=== PATIENT | male | born 1965 | race Caucasian/White ===

== ENCOUNTER → 2017-03-03 | Outpatient (CLI) | payer OTHER ==
[~2017-03-03] MED LIST: IBUP-1105 PO; KETO10TA PO; OXYC-57 PO
--- NOTE | 2017-03-03 13:45 | DIAGNOSTIC IMAGING REPORT ---
TWO VIEW CHEST CLINICAL HISTORY: Preoperative examination. FINDINGS: PA and lateral chest radiographs are obtained. No prior studies are available for comparison at the time of dictation. The cardiomediastinal silhouette is unremarkable. The lungs and pleural spaces are clear. There is no pneumothorax. The bony thorax appears intact. IMPRESSION: No active disease in the chest. Electronically signed by: Dionte Mirza M.D. 03/03/2017 1:44 PM Dictated Date/Time: 03/03/2017 1:43 PM
[2017-03-03 14:47] LABS: BASO % 0.9 %; BASO ABS # 0.07 K/uL (0-0.2); COMPLETE YES; EOS % 4.4 %; HEMATOCRIT 44.4 % (42-52); IG% 0.7 %; LYMPH % 29.4 %; LYMPH ABS # 2.19 K/uL (1.2-3.4); MEAN CELL VOLUME 93.1 fL (80-100); MEAN CORPUSCULAR HEMOGLOBIN 31.4 pg (25-34); MEAN CORPUSCULAR HGB CONC 33.8 g/dl (32-36); MEAN PLATELET VOLUME 10.6 fL (7.4-10.4); MONO % 11.7 %; NEUT % 52.9 %; PLATELET COUNT 239 K/uL (130-400); RED BLOOD COUNT 4.77 M/uL (4.7-6.1); WHITE BLOOD COUNT 7.46 K/uL (4.8-10.8)
[2017-03-03 14:59] LABS: BLOOD UREA NITROGEN 12 mg/dl (7-18); BUN/CREATININE RATIO 12.9 (10-20); CALCIUM 8.9 mg/dl (8.5-10.1); CARBON DIOXIDE 29 mmol/L (21-32); CHLORIDE 105 mmol/L (98-107); CREATININE 0.97 mg/dl (0.60-1.40); GLUCOSE 76 mg/dl (70-99); POTASSIUM 4.1 mmol/L (3.5-5.1); SODIUM 140 mmol/L (136-145)
== END | disposition home or self-care (01) ==
LOC: C.CPL 13:06
PROVIDERS: ATTEND Orthopaedic Surgery
DX: Z01.812 Encounter for preprocedural laboratory examination (principal); Z01.810 Encounter for preprocedural cardiovascular examination; M75.121 Complete rotator cuff tear or rupture of right shoulder, not specified as traumatic

== ENCOUNTER → 2017-03-18 | Day surgery (SDC) | payer OTHER ==
[2017-03-04 11:35] VITALS: Ht 185.4 cm; Wt 129.6 kg
[~2017-03-18] VITALS: Ht 185.4 cm; Wt 129.6 kg
[~2017-03-18] MED LIST changes: +ATROPINE SULFATE 0.1 MG/ML 5ML SYR IV PRN; +BUPIVACAINE/EPINEPHRINE 0.25% 1:200,000 30 ML VIAL ONE; +CEFAZOLIN 3000 MG/65 ML D5W IV SCH; +DEXAMETHASONE SOD INJ 4 MG/ML VIAL ONE; +EpHEDrine SULFATE INJ 50 MG/ML AMP IV PRN; +EpHEDrine SULFATE INJ 50 MG/ML AMP ONE; +EpINEphrine INJ 1MG/ML AMP 1 MG/ML AMP ONE; +FENTANYL CITRATE INJ 50 MCG/1 ML 2 ML VIAL IV PRN; +FENTANYL CITRATE INJ 50 MCG/1 ML 2 ML VIAL ONE; +GLYCOPYRROLATE INJ 0.2 MG/ML VIAL ONE; +LACTATED RINGER'S 1000ML 1,000 ML IV SCH; +LIDOCAINE HCL 2% 2 ML VIAL (20MG/ML) ONE; +MIDAZOLAM HCL 1 MG/ML 2ML VIAL ONE; +NEOSTIGMINE METHYLSULFATE 5 MG/5 ML SYR ONE; +ONDANSETRON INJ 2 MG/ML 2 ML VIAL IV PRN; +ONDANSETRON INJ 2 MG/ML 2 ML VIAL ONE; +OXYCODONE/ACETAMINOPHEN 5-325 TAB PO PRN; +PHENYLEPHRINE HCL INJ 10 MG/ML VIAL ONE; +PROMETHAZINE HCL INJ 6.25 MG in SODIUM CHLORIDE 0.9% 50ML 50 ML IV PRN; +PROPOFOL IV EMULSION 10 MG/ML 20 ML VIAL IV ONE; +ROCURONIUM BROMIDE 10 MG/ML 5 ML VIAL ONE; +SODIUM CHLORIDE 0.9% 1000ML 1,000 ML IV SCH; +SUCCINYLCHOLINE CHLORIDE 20 MG/ML 10 ML VIAL IV ONE
--- NOTE | 2017-03-18 07:00 | History & Physical Bridge - SC ---
H&P Re-Evaluation Bridge Note: I have examined the patient, reviewed the History & Physical and in the interval since the performance of the History & Physical I have noted the following changes of clinical significance: No changes noted
--- NOTE | 2017-03-18 10:03 | [facility] Post Operative Brief Note ---
Immediate Operative Summary Operative Date Mar 18, 2017. Pre-Operative Diagnosis Large rotator cuff tear right shoulder Post-Operative Diagnosis Same as preop Procedure(s) Performed Right Shoulder Arthroscopic Large Rotator Cuff Repair, Large Open Rotator Cuff Repair Surgeon Dr. Toro Precise Winder Surgeon(s) Tang Mckeon PA-C Estimated Blood Loss 150 mL Findings as above Specimens None Complication(s) None Disposition Recovery Room / PACU
--- NOTE | 2017-03-18 10:14 | Discharge Instructions-SurgCtr ---
Discharge Instructions Date of Service Mar 18, 2017. Visit Reason for Visit: Right Shoulder Full Thickness Rotator Cuff Tear Discharge Discharge Diagnosis / Problem: SAME ABOVE Discharge Goals Goal(s): Decrease discomfort, Improve function Medications Stopped Medications Name(s): STOPPED IBUPROFEN 4-5 DAYS AGO PER PAT NURSE Restart Stopped Medication(s): MAY RESTART WHEN YOU ARE FINISHED WITH TORADOL. TAKE TORADOL EVERY 8 HOURS WITH FOOD UNTIL FINISHED Activity Recommendations Activity Limitations: as noted below Lifting Limitations: until after follow-up appointment Exercise/Sports Limitations: until after follow-up appointment Driving or Machine Use: AFTER FOLLOW-UP Anesthesia . Post Anesthesia Instructions: If you have had General Anesthesia or IV Sedation: * Do not drive today. * Resume driving when surgeon permits. * Do not make important decisions or sign legal documents today. * Call surgeon for: 1. Temperature elevations greater than 101 degrees F. 2. Uncontrollable pain. 3. Excessive bleeding. 4. Persistent nausea and vomiting. 5. Medication intolerance (nausea, vomiting or rash). * For nausea and vomiting use only clear liquids such as: tea, soda, bouillon until nausea subsides, then gradually increase diet as tolerated. * If you have any concerns or questions, call your surgeon's office. If physician is unavailable and it is an emergency, call 911 or go to the nearest emergency room. . Instructions / Follow-Up Instructions / Follow-Up MEDICATIONS: * Resume previous medications unless instructed otherwise by your surgeon. * Always take pain medication on a full stomach or with food to avoid upset stomach. * Do not drink alcohol or drive while taking narcotics. * Ibuprofen or Tylenol may be taken if narcotic not needed. SPECIAL CARE INSTRUCTIONS: __ None _X_ Keep extremity elevated and iced x 48 hours; apply ice 20-30 minutes 8-10 times/day. May remove at night. __ Sling __24 hrs/day __ Remove at night _X_ Shoulder Immobilizer (MAY REMOVE AFTER 48 HOURS ONLY TO SHOWER AND FOR THERAPY) _X_ 24 hrs/day __ Remove at night _X_ Dressing __ Maintain until seen in office, may shower with plastic over site _X_ Remove dressings in 24-48 hours and then may shower _X_ Cover incisions with band-aids after showering __ Do not remove PRINEO (THE PURPLE TINTED DRESSING APPLIED DIRECTLY TO THE SKIN) Call physician if chills or temperature rises above 102 degrees or pain unrelieved by prescribed pain medications at . . Diet Recommendations Home Diet: no limitations Fluid Restriction: None Procedures Procedures Performed: Right Shoulder Arthroscopic Large Rotator Cuff Repair, Large Open Rotator Cuff Repair Pending Studies Studies pending at discharge: no Work Instructions Return To Work: after follow-up Lifting Limitations: NO LIFTING WITH RIGHT ARM Medical Emergencies . Who to Call and When: Medical Emergencies: If at any time you feel your situation is an emergency, please call 911 immediately. . Non-Emergent Contact Non-Emergency issues call your: Primary Care Provider Call Non-Emergent contact if: you have a fever, temperature is above 101.5 . . "Provider Documentation" section prepared by Tang Mckeon. .
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
[2017-03-18 11:17] VITALS: TEMP 36.5
--- NOTE | 2017-03-18 11:37 | Anesthesia Progress Nt - [facility] ---
Anesthesia Post Op Note Date & Time Mar 18, 2017 at 11:37 Vital Signs Pain Intensity: 0 Vital Signs Past 12 Hours Date Time Temp Pulse Resp B/P (MAP) Pulse Ox O2 Delivery O2 Flow Rate FiO2 03/18/17 11:17 36.5 82 20 147/82 (103) 95 Room Air 03/18/17 10:54 83 18 03/18/17 10:54 82 18 94 03/18/17 10:49 84 23 03/18/17 10:49 84 23 88 03/18/17 10:47 112/79 03/18/17 10:44 81 16 03/18/17 10:44 80 16 92 03/18/17 10:42 131/78 03/18/17 10:42 36.4 81 16 131/78 94 Room Air 03/18/17 10:39 80 17 99 03/18/17 10:39 79 17 03/18/17 10:38 79 17 97 03/18/17 10:38 79 17 03/18/17 10:37 119/85 03/18/17 10:33 85 14 03/18/17 10:33 85 14 92 03/18/17 10:32 131/86 03/18/17 10:28 84 14 96 03/18/17 10:28 84 14 03/18/17 10:27 129/80 03/18/17 10:23 86 19 03/18/17 10:23 85 19 97 03/18/17 10:22 119/79 03/18/17 10:20 85 16 98 03/18/17 10:20 85 16 03/18/17 10:17 125/83 03/18/17 10:15 83 19 97 03/18/17 10:15 83 19 03/18/17 10:12 128/78 03/18/17 10:10 36.4 86 16 128/78 97 Diffusion Mask 03/18/17 07:38 79 13 100 03/18/17 07:38 79 03/18/17 07:37 110/77 03/18/17 07:33 75 03/18/17 07:33 76 18 100 03/18/17 07:32 132/81 03/18/17 07:28 76 12 99 03/18/17 07:28 77 03/18/17 07:27 127/80 03/18/17 07:23 82 03/18/17 07:23 83 9 150/96 100 03/18/17 07:20 146/100 03/18/17 07:18 80 21 03/18/17 07:18 78 16 146/100 (115) 99 Mask 4 03/18/17 07:18 80 21 98 03/18/17 07:13 76 19 97 03/18/17 07:13 76 19 03/18/17 07:08 78 13 98 03/18/17 07:08 79 13 03/18/17 06:34 36.8 82 16 140/101 (114) 96 Room Air Notes Mental Status: alert / awake / arousable, participated in evaluation Pt Amnestic to Procedure: Yes Nausea / Vomiting: adequately controlled Pain: adequately controlled Airway Patency, RR, SpO2: stable & adequate BP & HR: stable & adequate Hydration State: stable & adequate Anesthetic Complications: no major complications apparent Block working well in pacu
[2017-03-18 12:08] VITALS: BP 137/79; PULSE 88; O2SAT 95
== END | disposition home or self-care (01) ==
LOC: X.SURG 06:24
PROVIDERS: ATTEND Orthopaedic Surgery
DX: M75.121 Complete rotator cuff tear or rupture of right shoulder, not specified as traumatic (principal)